=== PATIENT | male | born 2000 | race Caucasian/White ===

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

== ENCOUNTER 2021-11-13 23:22 | Emergency (ER) | payer OTHER, SELFPAY ==
[2021-11-13 23:24] VITALS: BP 169/95; PULSE 86; RESP 16; TEMP 36.1; O2SAT 98; BMI 42.6
--- NOTE | 2021-11-13 23:28 | ED.VIS.LOWEX ---
HPI History of Present Illness Chief Complaint: Lower Extremity Injury Detail of Chief Complaint: Left ankle pain due to plantar inversion mechanism injury Informant: patient Occured/Mechanism Comment: Plantar inversion mechanism injury left ankle Onset/Context/Timing Onset: Hours Context: Sudden Onset Timing: Continuous Quality of Pain: Dull and Aching Location: Left ankle Current Severity: Mild Maximum Severity: Moderate Worsened by: Weightbearing Relieved by: Rest and elevation Associated Symptoms Associated Symptoms: Positive for - (Difficulty ambulating.); Negative for Parasthesia, Weakness or Loss of Funtion Narrative Narrative: Patient is a 21-year-old male who presents with injury to his left ankle. He had a plantar eversion mechanism injury. He denies prior injury. Denies paresthesia, anesthesia or motor weakness. Tetanus Immunization: 5-10 years Prior similar symptoms: No Recent Illness/Hospitalization: No PFSH PFS Medical History (Updated 11/13/21 @ 23:[address] Saeed House MD) Hypertension Knee pain neck/back pain Shoulder pain Home Medications NK 03/29/19 [History Last Taken Unknown] Allergy/AdvReac Type Severity Reaction Status Date / Time mushroom Allergy Nausea Verified 11/13/21 23:23 Family History no significant family his Surgical History no surgical history Social History (Updated 11/13/21 @ 23:[address] Saeed House MD) household members: significant other Smoking Status: Never smoker alcohol intake: never substance use type: does not use ROS ROS ED Constitutional Constitutional ED: Denies chills, fever(s), subjective, sweats or weight loss Musculoskeletal Musculoskeletal: Reports other Details: Left ankle pain ; Denies arthralgias, back pain, myalgias or neck pain Neurologic Neurologic: Denies paresthesias or weakness Hematologic/Lymphatic Hematologic/Lymphatic: Denies easy bleeding or easy bruising EXAM Physical Exam Const Vital Signs: 11/13/21 23:24 Temperature 96.9 F L Temperature Source Oral Pulse Rate 86 Respiratory Rate 16 Blood Pressure 169/95 H Blood Pressure Mean 119 Pulse Ox 98 Oxygen Delivery Method Room Air Positive well nourished, well developed and obese; Negative for cachectic, contractures or unkempt General Appearance ED: well developed and NAD; Negative for unkempt, cachectic or contractures Nutritional Appearance: obese; Negative for cachectic HEENT Reports moist mucous membranes normocephalic and atraumatic Eyes PERRL Eyes Narrative: Extract muscle intact. Sclera is anicteric. Neck full ROM Resp normal respiratory effort Cardio regular rate and regular rhythm Extremity full ROM; Negative for normal to inspection Extremity Narrative: There is slight swelling of the left ankle compared to the right. There is pain ovation over the medial and lateral malleolus. There is pain ovation posterior aspect of the lateral malleolus. There is no pain Patient at the base of the fifth metatarsal. DP and PT pulse are palpable. There is no laxity with drawer testing. General Extremety ED: Yes weight-bearing difficulty General Extremity: weight-bearing difficulty Neuro Sensorium / Orientation: alert, oriented to person, oriented to place and oriented to time Motor Exam: strength 5/5 throughout Psych Appearance: Negative for unkempt Skin no wounds Lesions: no lesions Rashes: no rashes MDM MDM MDM Narrative Medical decision making narrative: Three-view x-ray of the left ankle was obtained to evaluate for fracture versus sprain Radiography X-Ray: Read by ED Physician (Three-view x-ray of the left ankle was independently interpreted by me as negative. There is no fracture, subluxation or dislocation. There is no foreign body.) Discharge Plan Triage Chief Complaint: Lower Extremity Injury ED Provider: Saeed House Dx/Rx/DC Orders Clinical Impression: Left ankle sprain Instructions: ED Ankle Sprain (Adult) Prescriptions: No Action NK Primary Care Provider: Care Physician,No Primary Referrals: Lexi Wilde DO [STAFF PHYSICIAN] - 1 Week if not improving Care Physician,No Primary [Primary Care Provider] - Activity Restrictions/Additional Instructions: 1. Apply ice 6-8 times a day 2. Draw the alphabet with your foot 4-6 times a day 3. Take 4 ibuprofen tablets every 8 hours or 2 Aleve tablets every 12 hours for the next 3 to 5 days 4. Do not go up ladders or incline greater than 10 degrees until pain-free Disposition Disposition: Home, Self Care
--- NOTE | 2021-11-13 23:32 | RAD_ITS ---
INDICATION: Injury/Pain EXAMINATION/TECHNIQUE: X-RAY - LEFT XR Ankle Min 3 Views COMPARISON: None. FINDINGS: SOFT TISSUES: Soft tissue swelling lateral ankle. No radiopaque foreign body detected. BONES/JOINTS: No acute fracture or subluxation. Normal alignment. Preservation of the joint space(s). No suspicious osseous lesion observed. RAD/Ankle min 3 Views IMPRESSION: Left ankle soft tissue swelling with no acute osseous injury. Electronically Signed: Bobo Crow MD at 0:04 EDT ,
== END 2021-11-13 23:56 | disposition home or self-care (01) ==
PROVIDERS: Emergency Provider Emergency Medicine; Visit Provider Emergency Medicine
DX: S93.402A Sprain of unspecified ligament of left ankle, initial encounter (principal); Z68.41 Body mass index [BMI] 40.0-44.9, adult; X50.1XXA Overexertion from prolonged static or awkward postures, initial encounter; E66.9 Obesity, unspecified
CPT/HCPCS: 73610; 99283

== ENCOUNTER 2022-01-23 22:20 | Emergency (ER) | payer OTHER, SELFPAY ==
[2022-01-23 22:21] VITALS: BP 152/90; PULSE 121; RESP 16; TEMP 36.6; O2SAT 97; BMI 40.1
--- NOTE | 2022-01-23 22:32 | EDS_ITS ---
HPI History of Present Illness Chief Complaint: Abscess Informant: patient Onset/Context/Timing Onset: Yesterday Context: Gradual Onset Current Severity: Moderate Maximum Severity: Moderate Narrative Narrative: Patient presents with an abscess to the posterior right thigh. He states he noted a small firm area yesterday. The area of redness has doubled in size today. He states he has felt warm but did not measure temperature. He is not diabetic. PFSH PFS Medical History Anxiety Depression Hypertension Knee pain Non-smoker Home Medications cephalexin 500 mg capsule 500 mg PO Q6 #40 caps 01/23/22 [Rx Last Taken Unknown] sulfamethoxazole 800 mg-trimethoprim 160 mg tablet (Bactrim DS) 1 tab PO BID #20 tabs 01/23/22 [Rx Last Taken Unknown] Allergy/AdvReac Type Severity Reaction Status Date / Time mushroom Allergy Nausea Verified 01/23/22 22:23 Family History no significant family his Social History household members: significant other Smoking Status: Never smoker alcohol intake: never substance use type: does not use ROS ROS ED Constitutional Constitutional ED: Reports fever(s) and subjective; Denies chills Eyes Eyes: Denies change in vision or discharge from eye(s) ENT ENT ED: Denies discharge from eye(s), rhinorrhea or sore throat Cardiovascular Cardiovascular: Denies chest pain or palpitations Respiratory/Chest Respiratory/Chest: Denies cough or dyspnea Gastrointestinal Gastrointestinal: Denies abdominal pain, diarrhea, nausea or vomiting Genitourinary Genitourinary ED: Denies dysuria Musculoskeletal Musculoskeletal: Reports extremity pain; Denies back pain Integumentary Reports abscess; Denies Abrasions or rash Neurologic Neurologic: Denies headache(s) or weakness Psychiatric Psychiatric: Denies anxiety or depression Allergic/Immunologic Allergic/Immunologic ED: Denies lip swelling or urticaria EXAM Physical Exam Const Vital Signs: 01/23/22 22:21 Temperature 97.8 F Temperature Source Temporal Pulse Rate 121 H Respiratory Rate 16 Blood Pressure 152/90 H Blood Pressure Mean 110 Pulse Ox 97 Oxygen Delivery Method Room Air Positive well nourished and well developed General Appearance ED: well developed HEENT Reports normocephalic and head/scalp atraumatic Eyes PERRL and EOMs intact bilaterally Neck supple Chest Wall inspection of chest normal and palpation of chest normal Resp normal respiratory effort and clear to auscultation bilaterally Cardio regular rate and regular rhythm GI normal to inspection, nondistended, normoactive bowel sounds Palpation: soft Extremity Extremity Narrative: 2 cm diameter cutaneous abscess on the posterior right thigh with 10 cm diameter area of cellulitis. No lymphangitic streaking. No spontaneous drainage. Neuro oriented x3 and no sensory deficits noted Sensorium / Orientation: alert Motor Exam: strength 5/5 throughout Psych mental status grossly normal Skin Skin Narrative: Thigh abscess as noted above. MDM MDM MDM Narrative Medical decision making narrative: Let was applied to the abscess. Area of erythema is outlined with surgical marker. 1 cc of 2% lidocaine is infused locally. A stab incision is 11. Blade. There is return of a small amount of pus. Curved hemostats were used to break up loculations. Area is cleansed and dressed. He is given Bactrim and Keflex here will be given prescriptions for the same. Discharge Plan Triage Chief Complaint: Abscess ED Provider: Shari Hyman Dx/Rx/DC Orders Clinical Impression: Cutaneous abscess, Cellulitis Instructions: ED Abscess Incision And Drainage, ED Cellulitis Prescriptions: New sulfamethoxazole-trimethoprim [Bactrim DS] 800-160 mg tablet 1 tab PO BID Qty: 20 0RF cephalexin 500 mg capsule 500 mg PO Q6 Qty: 40 0RF Primary Care Provider: Care Physician,No Primary Referrals: Payton Roth MD [Med Staff - [employer]] - As Needed Care Physician,No Primary [Primary Care Provider] - Disposition Disposition: Home, Self Care
[2022-01-23] MEDS: Lidocaine/Epi/Tetracaine 50 ML 1 APPLIC TOPICAL (22:45)
[2022-01-23] MEDS: Naproxen 500 MG Tablet PO (22:46)
[2022-01-23] MEDS: Smz/Tmp Ds Tablet 1 TABLET PO (22:46)
[2022-01-23] MEDS: Lidocaine 1% (20 ml mdv) 20 ML Vial INFILT (22:46)
[2022-01-23] MEDS: Cephalexin 250 MG Capsule 500 MG PO (22:46)
[2022-01-23 23:58] VITALS: PULSE 84; RESP 20; O2SAT 98
== END 2022-01-24 00:04 | disposition home or self-care (01) ==
PROVIDERS: Emergency Provider Emergency Medicine; Visit Provider Emergency Medicine
DX: L02.415 Cutaneous abscess of right lower limb (principal)
CPT/HCPCS: 10060; 99282

== ENCOUNTER 2023-01-05 19:21 | Emergency (ER) | payer BC, SELFPAY ==
[2023-01-05 19:22] VITALS: BP 148/83; PULSE 64; RESP 18; TEMP 36.1; BMI 40.1
[2023-01-05 19:24] VITALS: BP 146/83; PULSE 64; RESP 18; TEMP 36.1
--- NOTE | 2023-01-05 19:38 | EX.ED.DYSGE1 ---
HPI History of Present Illness Chief Complaint: Abscess Detail of Chief Complaint: Right hip redness. Informant: patient Onset/Context/Timing Onset: Today and Yesterday Context: Gradual Onset Timing: Continuous Current Severity: Mild Maximum Severity: Mild Narrative Narrative: 22-year-old male no seen past medical history. Redness to his right anterior thigh and hip. No fever. No pain. No discharge. Prior similar symptoms: Yes Recent Illness/Hospitalization: No PFSH PFSH Medical History Anxiety Depression Hypertension Knee pain Non-smoker Home Medications cephalexin 500 mg capsule 500 mg PO Q6 #40 caps 01/23/22 [Rx Last Taken Unknown] sulfamethoxazole 800 mg-trimethoprim 160 mg tablet (Bactrim DS) 1 tab PO BID #20 tabs 01/23/22 [Rx Last Taken Unknown] cephalexin 500 mg capsule 500 mg PO Q6 #40 CAPSULES 01/05/23 [Rx Last Taken Unknown] Allergy/AdvReac Type Severity Reaction Status Date / Time mushroom Allergy Nausea Verified 01/05/23 19:25 Social History household members: significant other Smoking Status: Never smoker alcohol intake: never substance use type: does not use ROS ROS ED Review of Systems ROS Unobtainable: Denies due to encephalopathy Constitutional Constitutional ED: Denies chills or fever(s) Eyes Eyes: Denies blurry vision ENT ENT ED: Denies ear pain Cardiovascular Cardiovascular: Denies chest pain Respiratory/Chest Respiratory/Chest: Denies cough Gastrointestinal Gastrointestinal: Denies abdominal pain Genitourinary Genitourinary ED: Denies dysuria Musculoskeletal Musculoskeletal: Denies arthralgias Integumentary Denies abscess Neurologic Neurologic: Denies headache(s) Psychiatric Psychiatric: Denies anxiety Endocrine Endocrinology: Denies cold intolerance Hematologic/Lymphatic Hematologic/Lymphatic: Reports none Allergic/Immunologic Allergic/Immunologic ED: Denies mouth swelling or tongue swelling EXAM Physical Exam Narrative Exam Narrative: 22-year-old male no acute distress. Vital signs stable afebrile. HEENT exam unremarkable. Lungs clear. Heart regular rhythm. Abdomen soft nontender. Extremities moves all 4. Right hip anterior thigh there is an area about 4 inches across by 2 inches wide into cellulitis. There is no abscess or fluctuance. There is nothing to drain. He is awake and alert. No focal deficits. Const Vital Signs: 01/05/23 19:22 01/05/23 19:24 Temperature 96.9 F L 96.9 F L Temperature Source Temporal Temporal Pulse Rate 64 64 Respiratory Rate 18 18 Blood Pressure 148/83 H 146/83 H Blood Pressure Mean 104 104 Positive well nourished and well developed; Negative for cachectic, contractures or unkempt General Appearance ED: well developed and NAD; Negative for unkempt, cachectic, contractures, cyanotic or diaphoretic Nutritional Appearance: Negative for cachectic HEENT Reports moist mucous membranes; Denies dry mucous membranes Negative for trauma or tenderness Mouth ED: No dry mucous membranes Mouth: No dry mucous membranes Eyes PERRL and EOMs intact bilaterally General Eye ED: Negative for pale conjunctiva, scleral icterus or other Neck no lymphadenopathy, supple and no JVD General: Negative for tenderness Lymph Lymphatic: Negative for other Chest Wall inspection of chest normal and palpation of chest normal Chest: Negative for other Resp normal respiratory effort and clear to auscultation bilaterally Effort and Inspection: Negative for retractions Auscultation: Negative for rales, rhonchi or wheezes Cardio regular rate, regular rhythm, S1 normal heart sound, S2 normal heart sound and no murmurs GI normal to inspection, nondistended, normoactive bowel sounds, non-tender, non-distended and no masses Inspection: Negative for abdominal distention Auscultation: normoactive bowel sounds Palpation: soft; Negative for tender or guarding Bladder / Kidney Exam: No other Back/Spine no CVA tenderness General Back: Negative for CVA tenderness Cervical Spine: Negative for cervical spine tenderness Thoracic Spine / Upper Back: Negative for thoracic spinal tenderness Lumbar Spine / Lower Back: Negative for lumbar spinal tenderness Extremity normal to inspection Extremity Narrative: Except anterior right thigh 2 x 4 inch area of cellulitis. No abscess. No fluctuance. General Extremety ED: Negative for edema or tenderness General Extremity: Negative for edema Neuro oriented x3 and CN's II-XII intact bilaterally Sensorium / Orientation: alert; Negative for orientation impaired, lethargic or stuporous Motor Exam: strength 5/5 throughout Psych mental status grossly normal Appearance: Negative for unkempt Attitude: No agitated Mood & Affect: Negative for depressed, anxious or tearful Skin No no rashes or lesions noted, no wounds and skin turgor normal Skin Narrative: Cellulitis right anterior thigh. No abscess. General Skin Exam: elasticity normal Lesions: No lesion noted Rashes: rashes noted Image ED - Body Diagram Man: 1. Right anterior proximal thigh cellulitis. No fluctuance. No abscess. MDM MDM MDM Narrative Medical decision making narrative: 22-year-old male with right thigh cellulitis. Started on Keflex 500 4 times daily for 10 days. Return if worse. Nothing at this time to drain. No abscess. Discharge Plan Triage Chief Complaint: Abscess ED Provider: Froy Chris Dx/Rx/DC Orders Clinical Impression: Cellulitis Instructions: ED Cellulitis Prescriptions: New cephalexin 500 mg capsule 500 mg PO Q6 Qty: 40 0RF No Action sulfamethoxazole-trimethoprim [Bactrim DS] 800-160 mg tablet 1 tab PO BID Qty: 20 0RF cephalexin 500 mg capsule 500 mg PO Q6 Qty: 40 0RF Primary Care Provider: Care Physician,No Primary Referrals: Marvin Shay MD [Med Staff - Cooperative Education Director] - 1 Week if not improving Care Physician,No Primary [Primary Care Provider] - Activity Restrictions/Additional Instructions: Keflex 1 pill 4 times a day for the next 10 days. If this is not improving or gets a lot worse doubles in size you develop a fever or feeling worse need to return. Make sure you take at least 1 more dose of antibiotic tonight before bedtime. When you start it tomorrow take it with each meal breakfast, lunch, dinner and at bedtime. Motrin and Tylenol for pain. Disposition Disposition: Home, Self Care
[2023-01-05] MEDS: Cephalexin 250 MG Capsule 500 MG PO (19:43)
[2023-01-05 19:54] VITALS: BP 113/67; PULSE 88; RESP 16; O2SAT 97
== END 2023-01-05 20:07 | disposition home or self-care (01) ==
PROVIDERS: Emergency Provider Emergency Medicine; Visit Provider Emergency Medicine
DX: L03.115 Cellulitis of right lower limb (principal); I10 Essential (primary) hypertension
CPT/HCPCS: 99282

== ENCOUNTER 2023-02-17 16:54 | Emergency (ER) | payer BC, SELFPAY ==
[2023-02-17 16:55] VITALS: BP 136/75; PULSE 85; RESP 18; TEMP 36.8; O2SAT 99; BMI 39.9
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
[2023-02-17 17:35] VITALS: PULSE 76; RESP 16
== END 2023-02-17 17:36 | disposition home or self-care (01) ==
PROVIDERS: Emergency Provider Emergency Medicine; Visit Provider Emergency Medicine
DX: S20.20XA Contusion of thorax, unspecified, initial encounter (principal); I10 Essential (primary) hypertension; V89.2XXA Person injured in unspecified motor-vehicle accident, traffic, initial encounter; Y92.410 Unspecified street and highway as the place of occurrence of the external cause
CPT/HCPCS: 71046; 99282